=== PATIENT | male | born 1975 | race Two or more races ===

== ENCOUNTER 2019-04-09 22:06 | Emergency (ER) | payer BC ==
[~2019-04-09] VITALS: Ht 175.3 cm; Wt 113.4 kg
[2019-04-09] MEDS ORDERED: Aspirin Baby 81mg ORAL ONE (22:15)
[2019-04-09] MEDS ORDERED: Metoprolol Tartrate 5mg/5ml Inj IVP SCH (22:15)
--- NOTE | 2019-04-09 22:20 | NUR ---
ED Nurse Note: pt presents to ED via [facility] c/o sternal chest "pressure" that started 20 min [employer]. pt reports that he was at work when the sensation started. 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 pt states he felt nauseated at the time the symptoms started but is no longer nauseated now. paramedics gave pt 324 mg of ASA and nitro x 2. pt rates the pain a 2/10. pt denies any medical history other than gout but does report that his biological brother from a cardiac arrest last year.
--- NOTE | 2019-04-09 22:25 | Emergency Room Report ---
History of Present Illness General Chief Complaint: Chest Pain Source: Patient Present Illness HPI Disclaimer: Please note that this report is being documented using DRAGON technology. This can lead to erroneous entry secondary to incorrect interpretation by the dictating instrument. HPI: 44-year-old male with no reported medical history presents for evaluation of chest pain. Symptoms began approximately 30 minutes prior to arrival. He notes a pressure of the left side of his chest that does not radiate. No shortness of breath, nausea, diaphoresis. Denies vomiting. Denies history of hypertension, hyperlipidemia, non-smoker, nondiabetic. His brother suddenly of cardiac arrest in his mid 40s. No cause was identified. Denies drug or alcohol abuse. PMH: Denies PSH: Appendectomy Allergies: Sulfa medications Social Hx: Denies drug, alcohol or tobacco use Allergies: Coded Allergies: SULFA (SULFONAMIDE ANTIBIOTICS) (Verified Allergy, Unknown, 04/09/19) Nursing Documentation-PMH Past Medical History: No History, Except For Hx Hypertension: Yes Review of Systems All Other Systems: negative except mentioned in HPI Physical Exam Vital Signs Date Time Temp Pulse Resp B/P (MAP) Pulse Ox O2 Delivery O2 Flow Rate FiO2 04/09/19 22:07 98.4 92 14 199/107 (137) 99 Room Air General: Awake and alert, appears uncomfortable, hypertensive, anxious appearing HEENT: NC/AT. EOMI. Cardiovascular: RRR. S1 and S2 normal. No murmur appreciated Resp: Normal work of breathing. No cough, wheezing or crackles appreciated Abdomen: Abdomen is soft, nondistended. Nontender Skin: Intact. No abrasions, laceration or rash over the exposed skin MSK: Normal tone and bulk. Moving all extremities. No obvious deformity. Neuro: Awake and alert. Mentating appropriately. Procedures Critical Care Time Critical Care Time Total critical care time: Approximately 45 minutes Due to a high probability of clinically significant, life threatening deterioration, the patient required the highest level of preparedness to intervene emergently and I personally spent this critical care time directly and personally managing the patient. This critical care time included obtaining a history, examining the patient, pulse oximetry, ordering and reviewing studies , ordering treatments, evaluating response to treatment and updating management plan as needed, frequent reassessment and discussion with other providers as well as arranging for ultimate disposition. This critical to care time was performed to assess and manage the high probability of life-threatening deterioration that could result in multiorgan failure. This critical care time is separate from the separately billable procedures and treating other patients. Medical Decision Making Diagnostic Impression: Primary Impression: Chest pain Additional Impression: STEMI (ST elevation myocardial infarction) ER Course 44-year-old male presents for evaluation of sudden onset chest tightness and chest pain 30 minutes prior to arrival. He received 324 mg aspirin and nitroglycerin from EMS. Initial EKG concerning for inferior ST segment elevation MN. There are mild reciprocal changes in lead I, aVL, V5 and V6. Will give metoprolol, Plavix discussed with STEMI transplant center. Labs and x -rays are pending. Start heparin. Laboratory Tests Test 04/09/19 22:20 White Blood Count 8.6 K/UL (4.8-10.8) Red Blood Count 5.05 M/UL (4.70-6.10) Hemoglobin 15.8 G/DL (14.2-18.0) Hematocrit 44.3 % (42.0-52.0) Mean Corpuscular Volume 88 FL (80-99) Mean Corpuscular Hemoglobin 31.4 PG (27.0-31.0) H Mean Corpuscular Hemoglobin Concent 35.7 G/DL (32.0-36.0) Red Cell Distribution Width 11.8 % (11.6-14.8) Platelet Count 291 K/UL (150-450) Mean Platelet Volume 6.4 FL (6.5-10.1) L Neutrophils (%) (Auto) 49.5 % (45.0-75.0) Lymphocytes (%) (Auto) 37.4 % (20.0-45.0) Monocytes (%) (Auto) 7.3 % (1.0-10.0) Eosinophils (%) (Auto) 4.4 % (0.0-3.0) H Basophils (%) (Auto) 1.5 % (0.0-2.0) Prothrombin Time 10.0 SEC (9.30-11.50) Prothrombin Time INR 0.9 (0.9-1.1) Activated Partial Thromboplast Time 26 SEC (23-33) Sodium Level Pending Potassium Level Pending Chloride Level Pending Carbon Dioxide Level Pending Blood Urea Nitrogen Pending Creatinine Pending Estimate Glomerular Filtration Rate Pending Glucose Level Pending Calcium Level Pending Total Bilirubin Pending Aspartate Amino Transferase (AST) Pending Alanine Aminotransferase (ALT) Pending Alkaline Phosphatase Pending Troponin I Pending Total Protein Pending Albumin Pending Globulin Pending EKG Diagnostic Results EKG Time: 22:08 Rate: normal Other Impression Sinus rhythm, normal axis. ST segment elevation in inferior leads with reciprocal ST depression in V5, V6, I, aVL. Concern for inferior STEMI Rhythm Strip Diag. Results Rhythm Strip Time: 22:08 EP Interpretation: yes Rate: 70s Rhythm: NSR, no PVC's, no ectopy Chest X-Ray Diagnostic Results Chest X-Ray Diagnostic Results : Chest X-Ray Ordered: Yes # of Views/Limited/Complete: 1 View Indication: Chest Pain EP Interpretation: Yes Interpretation: no consolidation, no effusion, no pneumothorax, no acute cardiopulmonary disease Impression: No acute disease Electronically Signed by: Electronically signed by Dr. Patrick Mcintyre Reevaluation Time: 23:02 Last Vital Signs Date Time Temp Pulse Resp B/P (MAP) Pulse Ox O2 Delivery O2 Flow Rate FiO2 04/09/19 22:07 98.4 92 14 199/107 (137) 99 Room Air Reevaluation Impression Patient has received aspirin, Plavix, metoprolol, heparin bolus. Blood pressure is improving systolic pressures are now in the 150s. Continues to complain of chest pressure. Additional morphine ordered. Patient be transferred to [facility] for further evaluation of possible inferior STEMI. Dr. Gilliam accepting physician. 911 transport initiated. Disposition: XFER SHT-TRM HOSP Condition: Serious Scripts Unable to Obtain Active Prescriptions or Reported Meds Patrick Mcintyre MD Apr 09, 2019 22:25
[2019-04-09 22:41] LABS: BASOPHILS % (AUTO) 1.5 % (0.0-2.0); EOSINOPHILS % (AUTO) 4.4 % (0.0-3.0); HEMATOCRIT 44.3 % (42.0-52.0); HEMOGLOBIN 15.8 G/DL (14.2-18.0); LYMPHOCYTES % (AUTO) 37.4 % (20.0-45.0); MEAN CORPUSCULAR VOLUME 88 FL (80-99); MONOCYTES % (AUTO) 7.3 % (1.0-10.0); NEUTROPHILS % (AUTO) 49.5 % (45.0-75.0); PLATELET COUNT 291 K/UL (150-450); RED BLOOD COUNT 5.05 M/UL (4.70-6.10); RED CELL DISTRIBUTION WIDTH 11.8 % (11.6-14.8); WHITE BLOOD COUNT 8.6 K/UL (4.8-10.8)
[2019-04-09] MEDS ORDERED: Morphine Sulfate 2mg/ml Inj(IV/IM USE ONLY) IVP ONE (22:45)
[2019-04-09 22:49] VITALS: BP 199/107
[2019-04-09 22:51] LABS: ANION GAP 14 mmol/L (5-15); BLOOD UREA NITROGEN 14 mg/dL (7-18); CALCIUM 7.4 MG/DL (8.5-10.1); CARBON DIOXIDE 21 MMOL/L (21-32); CHLORIDE 108 MMOL/L (98-107); CREATININE 0.8 MG/DL (0.55-1.30); POTASSIUM 3.3 MMOL/L (3.5-5.1); SODIUM 143 MMOL/L (136-145)
[2019-04-09 22:55] LABS: INR 0.9 (0.9-1.1)
[2019-04-09] MEDS ORDERED: Heparin 25,000u/D5W 500ml 500 ML IV SCH (23:00)
[2019-04-09] MEDS ORDERED: Heparin 5000 units/ml inj IV SCH (23:00)
--- NOTE | 2019-04-09 23:00 | NUR ---
ED Nurse Note: pt states his chest pressure is improving after 2 mg of morphine. ERMD notified, will hold off on 4 mg morphine order per ERMD request
[2019-04-09] MEDS ORDERED: Morphine Sulfate 4mg/ml Inj (IV USE ONLY) IVP ONE (23:15)
--- NOTE | 2019-04-09 23:27 | NUR ---
ED Nurse Note: report given to JOSÉ MIGUEL Jackson at [facility]. transportation is here [facility] to transport pt
[2019-04-09 23:30] VITALS: BP 152/96
[2019-04-09 23:32] LABS: ALBUMIN 3.2 G/DL (3.4-5.0)
[2019-04-09 23:43] LABS: ALANINE AMINOTRANSFERASE 37 U/L (12-78); ALBUMIN/GLOBULIN RATIO 0.8 (1.0-2.7); ALKALINE PHOSPHATASE 69 U/L (46-116); ASPARTATE AMINO TRANSFERASE 26 U/L (15-37); BILIRUBIN,TOTAL 0.3 MG/DL (0.2-1.0)
--- NOTE | 2019-04-10 12:44 | Diagnostic Imaging Report ---
Indication: Dyspnea Comparison: None A single view chest radiograph was obtained. Findings: Cardiomediastinal appearance is within normal limits for age. The lungs are clear. Pulmonary vascularity is appropriate. The diaphragmatic contour is smooth and costophrenic angles are sharp. No pleural effusions are identified. The bones are unremarkable. Impression: No acute findings
== END 2019-04-09 23:30 | disposition short-term general hospital (02) ==
LOC: EDBD 22:06 → EMR 23:09
DX: I21.3 ST elevation (STEMI) myocardial infarction of unspecified site (principal); R07.9 Chest pain, unspecified; Z90.89 Acquired absence of other organs; Z88.2 Allergy status to sulfonamides; I10 Essential (primary) hypertension
CPT/HCPCS: 36415; 71045; 80053; 84484; 85025; 85610; 85730; 93005; 96365; 96375; 99291; J1644; J2270